=== PATIENT | female | born 1995 | race Caucasian/White ===

== ENCOUNTER → 2022-02-15 12:09 | Outpatient (CLI) | payer OTHER, SELFPAY ==
[2022-02-15 12:40] LABS: Basophils # 0.1 K/mm3 (0-0.2); Basophils % 1.9 % (0.1-2.0); Eosinophils # 0.1 K/mm3 (0.0-0.4); Eosinophils % 1.6 % (0.1-12.0); Hematocrit 43.3 % (37.0-47.0); Hemoglobin 13.9 g/dL (12.2-16.2); Lymphocytes # 1.7 K/mm3 (0.7-4.5); Lymphocytes % 30.5 % (10-50); Mean Corpuscular HGB Conc 32.1 g/dL (31.8-35.4); Mean Corpuscular Hemoglobin 29.7 pg (27.0-31.2); Mean Corpuscular Volume 92.5 fl (81-99); Mean Platelet Volume 8.4 fl (7.4-10.4); Monocytes # 0.2 K/mm3 (0.1-1.0); Monocytes % 4.5 % (1.7-9.3); Neutrophils # 3.3 K/mm3 (1.8-7.8); Neutrophils % 61.5 % (37.0-80.0); Platelet Count 224 K/mm3 (142-424); Red Blood Count 4.68 M/mm3 (4.20-5.40); Red Cell Distribution Width 13.1 % (11.5-17.5); White Blood Count 5.4 K/mm3 (4.8-10.8)
[2022-02-16 07:20] LABS: HIV Screen 4th Generation wRfx Non Reactive (Non Reactive); Hepatitis B Surface Antigen Negative (Negative); Hepatitis C Antibody >11.0 s/co ratio (0.0-0.9)
[2022-02-16 12:45] LABS: Rapid Plasma Reagin Ab Titer Non Reactive (NonRea<1:1)
[2022-02-16 15:12] LABS: HSV 2 IgG Supplemental Testing Positive (Negative)
== END ==
PROVIDERS: Visit Provider Nurse Practitioner Obstetrics & Gynecology
DX: Z34.90 Encounter for supervision of normal pregnancy, unspecified, unspecified trimester (principal)
CPT/HCPCS: 36415; 85025; 86592; 86695; 86703; 86762; 86790; 86850; 87340; 87380; G0432

== ENCOUNTER → 2022-02-22 12:57 | Outpatient (CLI) | payer OTHER, SELFPAY ==
--- NOTE | 2022-02-22 12:58 | US_ITS ---
FINAL REPORT CLINICAL HISTORY: for dates FINDINGS: Sonographic images of the pelvis were obtained. pole measures 6 mm consistent with 6 week 3 day gestation. No cardiac activity is identified. The yolk sac appears collapse. The ovaries are within normal limits. IMPRESSION: Collapsed yolk sac and absence of cardiac activity. Quantitative beta HCG and follow-up ultrasound is recommended to assess viability. Reviewed, Interpreted and Dictated by Prieto Dubon MD Transcribed by Jessy Fernandez Authenticated by Prieto Dubon MD on 02/22/2022 06:04:00 PM [facility]
[2022-02-22 15:16] LABS: HCG,Quantitative 13783 mIU/ml (0-5.42)
== END ==
PROVIDERS: Visit Provider Nurse Practitioner Obstetrics & Gynecology
DX: Z34.90 Encounter for supervision of normal pregnancy, unspecified, unspecified trimester (principal); N92.6 Irregular menstruation, unspecified
CPT/HCPCS: 36415; 76801; 84702

== ENCOUNTER → 2022-02-24 11:58 | Outpatient (CLI) | payer OTHER, SELFPAY ==
[2022-02-24 13:05] LABS: Anion Gap 12.3 mEq/L (5-15); Blood Urea Nitrogen 9 mg/dl (7-17); Calcium 9.1 mg/dl (8.4-10.2); Carbon Dioxide 26 mmol/L (22.0-30.0); Chloride 104 mmol/L (98-107); Estimated Glomerular Filt Rate 150 ml/min (>60); GFR (African American) 182 ML/MIN (>60); Glucose 97 mg/dl (74-100); Potassium 4.3 mmoL/L (3.5-5.1); Sodium 138 mmol/L (136-145)
[2022-02-24 14:46] LABS: Basophils # 0.1 K/mm3 (0-0.2); Basophils % 1.4 % (0.1-2.0); Eosinophils # 0.2 K/mm3 (0.0-0.4); Eosinophils % 2.3 % (0.1-12.0); Hematocrit 41.6 % (37.0-47.0); Hemoglobin 14.4 g/dL (12.2-16.2); Lymphocytes # 2.2 K/mm3 (0.7-4.5); Lymphocytes % 34.1 % (10-50); Mean Corpuscular HGB Conc 34.5 g/dL (31.8-35.4); Mean Corpuscular Hemoglobin 30.3 pg (27.0-31.2); Mean Corpuscular Volume 87.9 fl (81-99); Monocytes # 0.3 K/mm3 (0.1-1.0); Neutrophils # 3.7 K/mm3 (1.8-7.8); Neutrophils % 57.2 % (37.0-80.0); Platelet Count 251 K/mm3 (142-424); Red Blood Count 4.74 M/mm3 (4.20-5.40); Red Cell Distribution Width 12.9 % (11.5-17.5); White Blood Count 6.5 K/mm3 (4.8-10.8)
== END ==
PROVIDERS: Visit Provider Nurse Practitioner Obstetrics & Gynecology
DX: Z01.818 Encounter for other preprocedural examination (principal); Z11.52 Encounter for screening for COVID-19
CPT/HCPCS: 36415; 80048; 85025; C9803; U0003; U0005

== ENCOUNTER 2022-02-28 05:55 | Day surgery (SDC) | payer OTHER, SELFPAY ==
[2022-02-28] VITALS (9 sets, daily range): BP systolic 103–129; BP diastolic 55–94; PULSE 66–88; RESP 12–18; TEMP -13.5–36.5; O2SAT 95–100; BMI 32.1
--- NOTE | 2022-02-28 07:49 | HMH.OPNOTE ---
Date of procedure: 02/28/22 Pre-op Diagnosis:: Missed Post-op Diagnosis:: Missed Procedure performed:: Dilation and curettage with Musa suction Surgeon:: Yonis Mclain MD SENIOR QUALITATIVE RESEARCHER:: Other (Shavon Tipton) Anesthesia: LMA Estimated blood loss (mL): 100 Clinical Note:: She is a 26-year-old 2 para 1 who was 8 weeks gestational age. She was seen in my office and had no evidence of heart rate activity. We had done 3 separate ultrasounds and confirmed this. As result of that she was offered dilation curettage with Musa suction. Operative findings:: She had an anteverted bulky uterus. There was copious tissue within the uterine cavity. Operative note:: She was taken room where LMA anesthesia was found be adequate. She is prepped draped normal sterile fashion in the lithotomy position. Weighted speculum is placed in vagina and the antilipid the cervix was grasped with a tenaculum. I used Moss dilators to dilate the cervix to 10 mm. Then using an 10 mm curved Phelps suction curette I evacuated the uterine contents. This was followed by a gentle curettage. She tolerated procedure well and was taken to recovery room in excellent condition. All sponge, instrument and needle counts were correct. Estimated blood loss was approximately 100 cc. Condition: stable Disposition: PACU Specimens:: Retained products of conception Complications:: None
--- NOTE | 2022-02-28 07:53 | P.PN_ITS ---
[facility] Anesthesia Checklist - Patient Identification Patient Identification: Arm Band, Verbal (Name & ) - Structural Data Admitted From: Home Planned Operative Procedure/s: Hysteroscopy D&C Consent for Planned Operative Procedure(s) Verified: Yes Verified Documents: Surgical Consent - NPO Status Verified Time NPO: 00:00 - Chart Verification Results Verified: CBC - Additional verifications Anesthesia Reactions: No Hx Blood Transfusions: No Blood Transfusion Reaction: No - Airway Assessment C-Spine Mobility Assessed: Yes TMJ Mobility Assessed: Yes Dentition: Good Dentition - Neurological Assessment Level of Consciousness: Awake, Alert, Appropriate - Anesthesia Plan Anesthesia Risk discussed: Yes ASA Class: II Anesthesia Type: General [facility] History I have reviewed the patient's past medical history: Yes Medical History: Denies:: Cancer, Diabetes Mellitus Type 1, Diabetes Mellitus Type 2, Internal Pacemaker, MRSA, Seizures *Have you ever received a pneumonia vaccine?: No *Have you received a flu vaccine this season?: No Other Medical History: Denies: Blood Transfusion Reaction Anesthesia experience/problems:: none Other Surgeries: Yes: . No: Pacemaker Amputation: No Fractures: No - *Social History Last grade of school completed: 9th or 10th Smoking Status: Current every day smoker # Packs/Day (cigarettes): 1 Alcohol Intake: former Alcohol Intake Frequency:: other Substance Use Type: marijuana, other *Occupational Status:: unemployed Housing: house *Travel in the last 8 weeks: None Family Hx:: No significant family history
--- NOTE | 2022-02-28 07:55 | HMH.ANESI ---
[facility] Anesthesia Record Part I Intake, IV Amount: 500 Estimated blood loss (mL): 100 Urine output (mL): 0 Blood Pressure: 103/60 SaO2: 95 Pulse Rate: 74 Respiratory Rate: 14 Temperature: 7.7 F Patient is:: Drowsy Stable to PACU at:: 07:51
--- NOTE | 2022-02-28 08:15 | PC.NURSE ---
02/28/22@ 0812- pt complaining of itching at PIV site. PIV assessed, 5-6 hives noted around PIV site, Edouard,SPACE CONTROL SUPERVISOR aware.
--- NOTE | 2022-02-28 09:05 | SUR.PHASEII ---
At time of discharge, PIV site not as red and has not extended beyond previous assessment by Flower Sullivan RN. Pt denies pain. Pt educated to contact MD or seek medical attention for worsening symptoms. Pt and friend verbalized understanding.
[2022-03-01 07:23] VITALS: BP 118/75; PULSE 71; TEMP 36.5
--- NOTE | 2022-03-01 07:23 | P.PN_ITS ---
[facility] Anesthesia Record Part II Discharge Time: 08:21 Destination: Surgical Day Care (OP Surgery) PACU nurse assessment reviewed?: Yes Patient Condition:: Good Anesthesia Complications:: None Swallowing reflex intact?: Yes Cyanosis?: No Blood Pressure: 118/75 Pulse Rate: 71 Temperature: 97.7 F Mental Status: Alert & Oriented Pain level:: 0 Nausea and/or vomitting:: None Intake, IV Amount: 0
== END 2022-02-28 09:05 | disposition home or self-care (01) ==
LOC: OR 05:56
PROVIDERS: PCP Nurse Practitioner Obstetrics & Gynecology; Visit Provider Nurse Practitioner Obstetrics & Gynecology
PROC: (CPT 58120; principal; 2022-02-28 07:30)
DX: O02.1 Missed abortion (principal)
CPT/HCPCS: 59820; 96374; J2405

== ENCOUNTER 2022-05-19 09:58 | Emergency (ER) | payer OTHER, SELFPAY ==
--- NOTE | 2022-05-19 10:15 | PC.NURSE ---
asked pt to give a urine sample upon her arrival to the ED and she stated that she couldn't at this time. Gave her a specimen cup and instructions to give us one if she does go to the restroom.
[2022-05-19 10:18] VITALS: BP 122/83; PULSE 77; RESP 20; TEMP 36.7; O2SAT 100; BMI 34.8
--- NOTE | 2022-05-19 10:21 | PC.NURSE ---
Salazar Gordon RN sent blood to lab.
[2022-05-19 10:25] LABS: Basophils # 0.1 K/mm3 (0-0.2); Basophils % 0.6 % (0.1-2.0); Eosinophils # 0.3 K/mm3 (0.0-0.4); Eosinophils % 3.5 % (0.1-12.0); Hematocrit 43.8 % (37.0-47.0); Hemoglobin 14.9 g/dL (12.2-16.2); Lymphocytes # 3.3 K/mm3 (0.7-4.5); Mean Corpuscular HGB Conc 34.1 g/dL (31.8-35.4); Mean Corpuscular Hemoglobin 29.1 pg (27.0-31.2); Mean Corpuscular Volume 85.4 fl (81-99); Monocytes # 0.4 K/mm3 (0.1-1.0); Monocytes % 4.5 % (1.7-9.3); Neutrophils # 4.5 K/mm3 (1.8-7.8); Neutrophils % 52.4 % (37.0-80.0); Platelet Count 258 K/mm3 (142-424); Red Blood Count 5.13 M/mm3 (4.20-5.40); Red Cell Distribution Width 12.7 % (11.5-17.5); White Blood Count 8.5 K/mm3 (4.8-10.8)
--- NOTE | 2022-05-19 10:29 | HMH.EDGENADL ---
ED Disposition Clinical Impression: Lower abdominal pain Vomiting Qualifiers: Vomiting type: unspecified Nausea presence: with nausea Qualified Code(s): R11.2 - Nausea with vomiting, unspecified Disposition: Home, Self-Care Condition on Discharge: Good Instructions: DI for Acute Abdominal Pain, DI for Vomiting -- Adult Additional Instructions: Ibuprofen for pain. Zofran as needed for nausea and vomiting. Additional instructions for ABDOMINAL PAIN: See your physician as soon as possible for further evaluation. Return immediately if worsening abdominal pain, vomiting, shortness of breath, fever, vomiting of blood or abdominal distention. Prescriptions: Ibuprofen [Ibuprofen 800mg Tablet] 800 mg PO Q8HP PRN #15 tab PRN Reason: Moderate Pain Transmission Status: Pending to [facility] Ondansetron [Zofran 4mg ODT] 4 mg PO TIDP PRN #10 tab PRN Reason: Nausea And Vomiting Transmission Status: Pending to [id number] Referrals: Provider,Referral, MD [Primary Care Provider] - - Critical Care Critical Care Time: No Attestation: On 05/19/22, the high probability of a clinically significant, sudden or life threatening deterioration of the following system(s) required my full and direct attention, intervention and personal management. The time I documented below is in addition to time spent performing reported procedures but includes the following listed in this critical care notation. Medical Decision Making - Matthew Inquiry Pt receiving controlled substance: Yes Matthew was queried for this patient: Yes Risks and benefits of using a controlled substance: were discussed with pt by me Vital Signs: 05/19/22 10:18 05/19/22 10:38 05/19/22 11:30 Temperature 98.0 F Temperature Source Oral Pulse Rate 76 70 Pulse Rate [Right Radial] 77 Respiratory Rate 20 18 16 Blood Pressure 132/81 146/91 H Blood Pressure [Right Arm] 122/83 Blood Pressure Mean 92 109 Blood Pressure Mean [Right Arm] 96 Blood Pressure Source [Right Arm] Automatic Cuff Blood Pressure Position [Right Arm] Sitting 02 Sat by Pulse Oximetry 100 99 100 Oxygen Delivery Method Room Air 05/19/22 12:00 Temperature Temperature Source Pulse Rate 66 Pulse Rate [Right Radial] Respiratory Rate Blood Pressure 141/79 H Blood Pressure [Right Arm] Blood Pressure Mean Blood Pressure Mean [Right Arm] Blood Pressure Source [Right Arm] Blood Pressure Position [Right Arm] 02 Sat by Pulse Oximetry 98 Oxygen Delivery Method - Lab Data Lab Results 05/19/22 10:20: WBC 8.5, RBC 5.13, Hgb 14.9, Hct 43.8, MCV 85.4, MCH 29.1, MCHC 34.1, RDW 12.7, Plt Count 258, MPV 8.0, Neut % (Auto) 52.4, Lymph % (Auto) 39.0, Harrison % (Auto) 4.5, Eos % (Auto) 3.5, Baso % (Auto) 0.6, Neut # (Auto) 4.5, Lymph # (Auto) 3.3, Harrison # (Auto) 0.4, Eos # (Auto) 0.3, Baso # (Auto) 0.1 05/19/22 10:20: Sodium 138, Potassium 3.8, Chloride 106, Carbon Dioxide 26, Anion Gap 9.8, BUN 18 H, Creatinine 0.50 L, Estimated Creat Clear 305 H, Estimated GFR 149, Est GFR ( Amer) 180, Glucose 134 H, Calcium 9.4, Total Bilirubin 0.5, AST 39 H, ALT 26, Alkaline Phosphatase 67, Total Protein 7.2, Albumin 4.3, Globulin 2.9, Albumin/Globulin Ratio 1.5, Amylase 42, Lipase < 10 L 05/19/22 10:20: Serum HCG, Qual Negative 05/19/22 11:13: Urine Color Yellow, Urine Appearance Sl cloudy, Urine pH 7.0, Ur Specific [place] 1.025, Urine Protein 1+, Urine Glucose (UA) Negative, Urine Ketones Trace, Urine Blood Negative, Urine Nitrate Negative, Urine Bilirubin Negative, Urine Urobilinogen 0.2, Ur Leukocyte Esterase Negative, Urine RBC Occasional, Urine WBC Occasional, Ur Squamous Epith Cells Occasional, Urine Bacteria Trace, Urine Mucus 1+ Result diagrams: 05/19/22 10:20 05/19/22 10:20 Orders (Tests/Meds): ED MEDICATIONS Discontinued Medications Generic Name Dose Route Start Last Admin Trade Name Freq PRN Reason Stop Dose Admin Iopamidol 75 ml 07
[2022-05-19 10:35] LABS: Chloride 106 mmol/L (98-107); Potassium 3.8 mmoL/L (3.5-5.1); Sodium 138 mmol/L (136-145)
--- NOTE | 2022-05-19 10:36 | PC.NURSE ---
Rounded on patient; asked patient if she needed anything she said another blanket would be nice. Got patient a blanket and she had asked about medicine said she was in some pain. After leaving the room and turning off the lights at patient's request I informed Andrea KAYE about the patient wanting medicine. Call light within reach will continue to monitor.
--- NOTE | 2022-05-19 10:36 | PC.NURSE ---
Pt advises that she is still unable to provide a urine sample at this time. C/O pain and requesting meds. Will ask MD once he returns from another pt's room.
[2022-05-19 10:37] LABS: Alanine Aminotransferase 26 U/L (12-78); Amylase 42 U/L (30-110); Aspartate Amino Transferase 39 U/L (14-36); Blood Urea Nitrogen 18 mg/dl (7-17); Creatinine Clearance Estimated 305 mL/min (50-200); Estimated Glomerular Filt Rate 149 ml/min (>60); GFR (African American) 180 ML/MIN (>60)
[2022-05-19 10:38] VITALS: BP 132/81; PULSE 76; RESP 18; O2SAT 99
[2022-05-19 10:38] LABS: Albumin Level 4.3 g/dl (3.5-5.0); Albumin/Globulin Ratio 1.5 (1.1-1.8); Alkaline Phosphatase 67 U/L (38-126); Anion Gap 9.8 mEq/L (5-15); Bilirubin,Total 0.5 mg/dl (0.2-1.3); Calcium 9.4 mg/dl (8.4-10.2); Carbon Dioxide 26 mmol/L (22.0-30.0); Globulin 2.9 g/dL (1.3-3.2); Glucose 134 mg/dl (74-100); Total Protein,Serum 7.2 g/dl (6.3-8.2)
[2022-05-19 10:39] LABS: Lipase < 10 U/L (23-300)
--- NOTE | 2022-05-19 10:40 | CT_ITS ---
FINAL REPORT TECHNIQUE: After the administration of intravenous contrast, axial images were obtained through the abdomen and pelvis by computed tomography. The study was performed with techniques to keep radiation dose as low as reasonably achievable, (ALARA). Individual dose reduction techniques using automated exposure control or adjustment of mA and/or kV according to the patient's size were employed. CLINICAL HISTORY: abd pain, d & c 2 months ago. hasnt been to followup appt. FINDINGS: Abdomen: There is a calcified granuloma in the left lung base. The liver is normal in size and attenuation. The gallbladder is present. The spleen is unremarkable. The adrenals are normal. The pancreas is unremarkable. The kidneys enhance appropriately. The aorta is normal in caliber. There is no free fluid or adenopathy. Pelvis: The appendix is unremarkable. The urinary bladder is unremarkable. There is a small amount of pelvic free fluid, may be physiologic or reactive. There is no evidence of adenopathy. IMPRESSION: No acute intra-abdominal process. Reviewed, Interpreted and Dictated by Nino Monteiro III, MD Transcribed by Jessy Fernandez Authenticated and [facility]
--- NOTE | 2022-05-19 10:40 | PC.NURSE ---
states that he is waiting for results of test before prescribing meds for pain.
[2022-05-19 10:45] LABS: HCG Qualitative, Serum Negative (Negative)
--- NOTE | 2022-05-19 10:52 | PC.NURSE ---
Salazar Gordon RN at bedside medicating pt.
--- NOTE | 2022-05-19 11:00 | PC.NURSE ---
risk tech taking patient to CT by wheelchair.
--- NOTE | 2022-05-19 11:00 | PC.NURSE ---
Pt to rad at this time.
--- NOTE | 2022-05-19 11:10 | PC.NURSE ---
dietetic technician assisted patient to the bathroom
--- NOTE | 2022-05-19 11:16 | PC.NURSE ---
Went in to collect patient urine. Patient stated, It doesn't hurt when i pee but it feeling like something is trying to come out When told to further elaborate on what she meant by that she stated like a kidney stone or something . Patient also stated The morphine is helping now but it will not take away the pain forever it will come back I told her I would let her nurse know. Mendoza notified.
[2022-05-19 11:23] LABS: Microscopic, Urine URINE MICROSCOPIC (MICROSCOPIC)
[2022-05-19 11:25] LABS: Appearance,Urine SL CLOUDY (Clear); Bilirubin,Urine Negative (Negative); Blood, Urine Negative (Negative); Color,Urine YELLOW (Yellow); Glucose,Urine (UA) Negative (Negative); Ketones,Urine TRACE (Negative); Leukocyte Esterase,Urine Negative (Negative); Nitrate,Urine Negative (Negative); Protein,Urine 1+ (Negative); Specific Gravity, Urine 1.025 (1.005-1.030); Urobilinogen,Urine 0.2 EU/dl (0.2)
[2022-05-19 11:30] VITALS: BP 146/91; PULSE 70; RESP 16; O2SAT 100
--- NOTE | 2022-05-19 11:33 | PC.NURSE ---
Pt states that the pain medication has helped ease her pain at this time. Resting comfortable on stretcher with IV fluids running.
[2022-05-19 11:36] LABS: Bacteria,Urine Trace /lpf; Mucus,Urine 1+ /lpf; RBC,Urine Occasional #/hpf (0-3); Squamous Epithelial Cell,Urine Occasional #/hpf (0-5); WBC,Urine Occasional #/hpf (0-3)
[2022-05-19 12:00] VITALS: BP 141/79; PULSE 66; O2SAT 98
--- NOTE | 2022-05-19 12:17 | PC.NURSE ---
MD at bedside updating pt on test results and POC.
--- NOTE | 2022-05-19 12:28 | PC.NURSE ---
Pt is attempting to call ride at this time.
[2022-05-19 12:39] VITALS: BP 129/76; PULSE 74; RESP 16; TEMP 36.7; O2SAT 98
== END 2022-05-19 12:39 | disposition home or self-care (01) ==
PROVIDERS: Emergency Provider Emergency Medicine
DX: R11.2 Nausea with vomiting, unspecified (principal); R10.31 Right lower quadrant pain; R10.32 Left lower quadrant pain; R10.13 Epigastric pain; M54.9 Dorsalgia, unspecified; J84.10 Pulmonary fibrosis, unspecified; F17.210 Nicotine dependence, cigarettes, uncomplicated; Z79.899 Other long term (current) drug therapy
CPT/HCPCS: 74177; 80053; 81001; 82150; 83690; 84703; 85025; 96374; 96375; 99285; J2405; Q9967

== ENCOUNTER → 2022-08-10 17:57 | Outpatient (CLI) | payer OTHER, SELFPAY | PROVIDERS: Visit Provider Nurse Practitioner Obstetrics & Gynecology | DX: Z34.90 Encounter for supervision of normal pregnancy, unspecified, unspecified trimester (principal); Z3A.01 Less than 8 weeks gestation of pregnancy | CPT/HCPCS: 84702 ==

== ENCOUNTER → 2022-08-18 09:48 | Outpatient (CLI) | payer OTHER, SELFPAY ==
[2022-08-18 11:32] LABS: Basophils % 0.7 % (0.1-2.0); Eosinophils # 0.1 K/mm3 (0.0-0.4); Eosinophils % 1.7 % (0.1-12.0); Hematocrit 39.2 % (37.0-47.0); Hemoglobin 13.1 g/dL (12.2-16.2); Lymphocytes # 1.6 K/mm3 (0.7-4.5); Lymphocytes % 26.4 % (10-50); Mean Corpuscular HGB Conc 33.5 g/dL (31.8-35.4); Mean Corpuscular Hemoglobin 29.3 pg (27.0-31.2); Mean Corpuscular Volume 87.6 fl (81-99); Mean Platelet Volume 8.7 fl (7.4-10.4); Monocytes # 0.3 K/mm3 (0.1-1.0); Monocytes % 4.4 % (1.7-9.3); Neutrophils % 66.9 % (37.0-80.0); Platelet Count 217 K/mm3 (142-424); Red Blood Count 4.48 M/mm3 (4.20-5.40); White Blood Count 5.9 K/mm3 (4.8-10.8)
[2022-08-19 08:18] LABS: HIV Screen 4th Generation wRfx Non Reactive (Non Reactive); Hepatitis B Surface Antigen Negative (Negative); Hepatitis C Antibody >11.0 s/co ratio (0.0-0.9); Rubella Antibodies, IgG 6.45 index (Immune >0.99)
[2022-08-19 10:10] LABS: Rapid Plasma Reagin Ab Titer Non Reactive (NonRea<1:1)
== END ==
PROVIDERS: PCP Nurse Practitioner Obstetrics & Gynecology; Visit Provider Nurse Practitioner Obstetrics & Gynecology
DX: Z34.90 Encounter for supervision of normal pregnancy, unspecified, unspecified trimester (principal)
CPT/HCPCS: 36415; 85025; 86592; 86703; 86762; 86850; 87340; 87380; G0432

== ENCOUNTER → 2022-11-08 13:28 | Outpatient (CLI) | payer OTHER, SELFPAY ==
--- NOTE | 2022-11-08 13:30 | US_ITS ---
FINAL REPORT CLINICAL HISTORY: 20 week anatomty scan FINDINGS: There is a single live intrauterine gestation. Presentation is breech. The cervix is closed and measures 4.0 cm. Placenta is anterior, grade 1. movement is noted. Three-vessel cord with satisfactory umbilical cord insertion. Four-chamber heart is noted. brain and ventricles are unremarkable. Chest and diaphragm are unremarkable. ABDOMEN: Both kidneys are unremarkable. Stomach is unremarkable. SPINE: No anomalies identified. Both arms and legs noted. AMNIOTIC FLUID: Appropriate amount. HC/AC: 1.05 CI: 75% FL/BPD: 77% FL/AC: 22% MEASUREMENTS: ULTRASOUND AGE: 24 weeks 0 days. GESTATION AGE: 24 weeks 2 days. ESTIMATED WEIGHT: 685 g GROWTH PERCENTILE: 43% LMP percentile BPD: 5.7 cm corresponding with 23 weeks 3 days. OFD: 7.6 cm corresponding with 24 weeks 0 days. HC: 21.0 cm corresponding with 23 weeks 1 days. AC: 19.9 cm corresponding with 24 weeks 5 days. FL: 4.4 cm corresponding with 24 weeks 4 days. CEREBELLUM: 2.5 cm corresponding with 24 weeks 2 days. HUMERUS: 4.0 cm corresponding with 24 weeks 4 days. IMPRESSION: Single living IUP with an ultrasound age of 24 weeks 0 days. No gross anomalies noted. Reviewed, Interpreted and Dictated by Nino Monteiro III, MD Transcribed by Maricruz Loredo Authenticated and [facility]
== END ==
PROVIDERS: PCP Nurse Practitioner Obstetrics & Gynecology; Visit Provider Nurse Practitioner Obstetrics & Gynecology
DX: Z34.90 Encounter for supervision of normal pregnancy, unspecified, unspecified trimester (principal); Z3A.20 20 weeks gestation of pregnancy
CPT/HCPCS: 76811

== ENCOUNTER → 2023-02-15 23:27 | Outpatient (CLI) | payer OTHER, SELFPAY | PROVIDERS: Visit Provider Nurse Practitioner Obstetrics & Gynecology | DX: Z34.90 Encounter for supervision of normal pregnancy, unspecified, unspecified trimester (principal) | CPT/HCPCS: 86403 ==

== ENCOUNTER 2023-02-26 05:15 | Inpatient (IN) | payer OTHER, SELFPAY ==
[2023-02-26 05:24] VITALS: BP 128/87; PULSE 89; RESP 18; TEMP 37; O2SAT 98; BMI 37.7; BMI 37.8
[2023-02-26 05:58] LABS: Coronavirus 19, PCR Not Detected (NotDetected); Influenza A, PCR Not Detected (NotDetected); Influenza B, PCR Not Detected (NotDetected); Microscopic, Urine URINE MICROSCOPIC (MICROSCOPIC)
[2023-02-26 06:17] LABS: Basophils % 0.5 % (0.1-2.0); Eosinophils # 0.2 K/mm3 (0.0-0.4); Eosinophils % 1.6 % (0.1-12.0); Hematocrit 35.8 % (37.0-47.0); Hemoglobin 12.3 g/dL (12.2-16.2); Lymphocytes # 2.4 K/mm3 (0.7-4.5); Mean Corpuscular HGB Conc 34.2 g/dL (31.8-35.4); Mean Corpuscular Hemoglobin 30.2 pg (27.0-31.2); Mean Corpuscular Volume 88.2 fl (81-99); Mean Platelet Volume 9.1 fl (7.4-10.4); Monocytes # 0.5 K/mm3 (0.1-1.0); Monocytes % 5.3 % (1.7-9.3); Neutrophils # 6.1 K/mm3 (1.8-7.8); Neutrophils % 66.5 % (37.0-80.0); Platelet Count 226 K/mm3 (142-424); Red Blood Count 4.06 M/mm3 (4.20-5.40); Red Cell Distribution Width 13.2 % (11.5-17.5); White Blood Count 9.2 K/mm3 (4.8-10.8)
[2023-02-26 06:31] LABS: Appearance,Urine SL CLOUDY (Clear); Bilirubin,Urine Negative (Negative); Blood, Urine Negative (Negative); Color,Urine YELLOW (Yellow); Glucose,Urine (UA) Negative (Negative); Ketones,Urine Negative (Negative); Leukocyte Esterase,Urine Negative (Negative); Nitrate,Urine Negative (Negative); PH,Urine 6.5 (5.0-8.5); Protein,Urine Negative (Negative); Specific Gravity, Urine 1.025 (1.005-1.030)
[2023-02-26 06:59] LABS: Bacteria,Urine Trace /lpf; Hyaline Casts,Urine Occasional #/lpf (0); WBC,Urine Occasional #/hpf (0-3)
--- NOTE | 2023-02-26 07:00 | EXP.ANES.CKL ---
[facility] Disclaimer: The information contained in this section may have been updated after the patient was seen, as this information can be updated by other users. Medical History Hepatitis C antibody positive in blood Suboxone maintenance treatment complicating , antepartum Surgical History History of section History of dilation and curettage Social History Smoking Status: Current every day smoker alcohol intake: former substance use type: marijuana and other current occupational status: employed Travel in the last 8 weeks: None housing: house caffeine: Yes [facility] Anesthesia Checklist Patient Identification Patient Identification: Arm Band and Verbal (Name & ) Structural Data Admitted From: Home Planned Operative Procedure/s: C section Consent for Planned Operative Procedure(s) Verified: Yes NPO Status Verified Time NPO: 00:00 Chart Verification Results Verified: CBC and BMP Additional verifications Patient : Yes Anesthesia Reactions: No Hx Blood Transfusions: No Blood Transfusion Reaction: No Airway Assessment C-Spine Mobility Assessed: Yes TMJ Mobility Assessed: Yes Dentition: Good Dentition Neurological Assessment Level of Consciousness: Awake Hx Seizures: No Numbness or tingling in extremities: No Anesthesia Plan Anesthesia Risk discussed: Yes Anesthesia Plan: Verified ASA Class: II Anesthesia Type: Spinal
[2023-02-26 07:02] LABS: Alanine Aminotransferase 29 U/L (12-78); Albumin Level 2.9 g/dl (3.5-5.0); Albumin/Globulin Ratio 1.1 (1.1-1.8); Alkaline Phosphatase 131 U/L (38-126); Anion Gap 13.7 mEq/L (5-15); Aspartate Amino Transferase 30 U/L (14-36); Bilirubin,Total 0.3 mg/dl (0.2-1.3); Blood Urea Nitrogen 10 mg/dl (7-17); Calcium 8.1 mg/dl (8.4-10.2); Carbon Dioxide 22 mmol/L (22.0-30.0); Chloride 103 mmol/L (98-107); Creatinine Clearance Estimated 304 mL/min (50-200); Estimated Glomerular Filt Rate 149 ml/min (>60); GFR (African American) 180 ML/MIN (>60); Globulin 2.7 g/dL (1.3-3.2); Glucose 82 mg/dl (74-100); Potassium 3.7 mmoL/L (3.5-5.1); Sodium 135 mmol/L (136-145); Total Protein,Serum 5.6 g/dl (6.3-8.2)
[2023-02-26 07:57] LABS: Amphetamine/Metha Screen,Urine Negative ng/ml (<1000); Benzodiazepines Screen,Urine Negative ng/ml (<200)
[2023-02-26 07:58] LABS: Barbiturates Screen,Urine Negative ng/ml (<200)
[2023-02-26 07:59] LABS: Cannabinoid Screen,Urine Negative ng/ml (<50); Cocaine Screen,Urine Negative ng/ml (<300)
--- NOTE | 2023-02-26 08:13 | HMH.PHAINT1 ---
Pharmacy Intervention Comments: MEDICATION RECONCILIATION COMPLETED ON PATIENT USING EXTERNAL FILL HISTORY FROM PHARMACY AND [facility] REPORT. -MELISSA RUSH, MARITAD
[2023-02-26 08:27] LABS: Cord Blood PH 7.33 (7.35-7.45)
[2023-02-26 08:43] LABS: Opiate Screen,Urine Negative ng/ml (<300)
[2023-02-26 08:44] LABS: Phencyclidine Screen,Urine Negative ng/ml (<25)
[2023-02-26 08:45] LABS: Methadone Screen,Urine Negative ng/ml (<300)
--- NOTE | 2023-02-26 08:55 | EXP.OP.NOTE ---
Date of procedure: 02/26/23 Pre-op Diagnosis:: Term , previous section, desire for sterilization, Suboxone maintenance in , hepatitis C positive Post-op Diagnosis:: Term , previous section, desire for sterilization, Suboxone maintenance in , hepatitis C positive Procedure performed:: Repeat lower segment transverse section and bilateral salpingectomy Surgeon:: Yonis Mclain MD Assistant Manager Trainee(s):: Dr. Tavera CLUBHOUSE MANAGER:: Shelli Layne Anesthesia: spinal Estimated blood loss (mL): 600 Clinical Note:: She is a 27-year-old lady who has had previous sections. She was offered repeat lower segment transverse section at term. She also expressed desire for sterilization. The risks and benefits of surgery as well as the irreversibility of bilateral salpingectomy were discussed with the patient prior to surgery. She is also on Suboxone and has hepatitis C. Operative findings:: She delivered a liveborn male child at 8:01 AM on the morning of February 26, 2023. The baby had Apgars of 8 at 1 minute and 9 at 5 minutes. pH was 7.33. Baby weighed 7 pounds 11 ounces. Ovaries and tubes appeared normal. Operative note:: She was taken to the operating room where spinal anesthesia was found be adequate. She was prepped and draped in normal sterile fashion in the supine position with a leftward tilt. A Owen catheter was in the bladder. A Pfannenstiel skin incision was made with knife then carried through to the underlying layer of fascia with cautery. The fascia was opened in the midline with cautery and extended laterally using Saunders scissors. Moraima clamps were applied to the superior aspect of the fascial incision which was tented up and the underlying rectus muscles dissected off using cautery. The Carlton clamps were then applied to the inferior aspect of the fascial incision which in a similar fashion was tented up and the underlying rectus muscles dissected off using cautery. The rectus muscles were then in the midline, the peritoneum identified, and entered sharply with Metzenbaum scissors. This incision was then extended superiorly and inferiorly with cautery. We had good visualization of the bladder inferiorly. The bladder peritoneum was then opened in the midline and extended laterally using Metzenbaum scissors. A bladder flap was created digitally. An Shar retractor was then placed within the abdominal cavity. Transverse incision was made through the uterine muscle to the amnion. This incision was then extended laterally using fingers traction. The amnion was entered sharply with knife. There was clear amniotic fluid. The 's head was then delivered atraumatically. There was a loose nuchal cord which was easily reduced. This was followed by the anterior shoulder and the rest of the infant's body atraumatically. The oropharynx and nasopharynx were bulb suctioned. We allowed the cord to continue to pulsate for approximately 1 minute since the baby was vigorous. The cord was then doubly clamped and cut. The infant was then handed off to Dr. Alfaro who assigned Apgars of 8 at 1 minute and 9 at 5 minutes. We then obtained cord blood as well as cord pH. The pH was 7.33. Using gentle traction on the cord and countertraction on the fundus I was able to easily deliver the placenta intact. It had a normal three-vessel cord. The uterus was then cleared of clots and debris . The uterine incision was then closed using running 0 Vicryl suture in a locked fashion. A second layer of the same suture was used to imbricate the first layer. The bladder peritoneum was then closed using running 2-0 Vicryl suture in a locked fashion. The gutters and cul-de-sac were then cleared of clots and debris . Once again hemostasis was assured. We then performed a bilateral salpingectomy. The distal end of the tube was grasped with my fingers and using the endoseal I cut through the mesosalpinx. I then cut across
[2023-02-26 08:56] VITALS: BP 110/72; PULSE 59; RESP 16; TEMP 36.1; O2SAT 100
--- NOTE | 2023-02-26 08:56 | EXP.ANES.I ---
[facility] Anesthesia Record Part I Anesthesia Record I Intake, IV Amount: 1,200 Estimated blood loss (mL): 600 Urine output (mL): 80 Blood Pressure: 114/71 SaO2: 100 Pulse Rate: 65 Respiratory Rate: 13 Temperature: 97 F Patient is:: Awake Stable to PACU at:: 08:56
[2023-02-26 08:58] VITALS: BP 114/71; PULSE 65; RESP 13; TEMP 36.1; O2SAT 100
[2023-02-26 09:06] VITALS: BP 112/75; PULSE 62; RESP 17; O2SAT 100
[2023-02-26 09:16] VITALS: BP 115/68; PULSE 64; RESP 18; O2SAT 100
[2023-02-26 09:26] VITALS: BP 105/57; PULSE 65; RESP 18; O2SAT 100
--- NOTE | 2023-02-26 11:17 | SUR.OPER ---
0801- Time of of viable infant. Cord blood pH 7.33
--- NOTE | 2023-02-26 14:19 | SW/DCPLANNER ---
Addendum entered by Gala Sam 03/02/23 08:18: Infant cord screen is positive for Suboxone: no further action at this time. Addendum entered by Gala Sam 02/27/23 09:30: urine drug screen is negative. Original Note: I received a consult on this patient regarding: suboxone and THC use during . Patient tested positive for THC and Suboxone on 08/11/22 and Suboxone on 02/16/23. OB staff has tested patient and infant: currently awaiting results. Pharmacy has verified Suboxone Clinic: [facility]. Infant male (Jose Schulz) was born today 02/26/23. Infant's father (Hi Schulz 12/09/82) was not present at time of my visit but patient stated that he will be involved with . Patient, Hi, infant and father's other child (Patrick Schulz) will reside at [address] [place] [address]. Patient's contact number is [phone]. Patient is established with [facility] and is interested in HANDS and I will ask this program to reach out to patient. Patient stated that she has the following items at home: crib, carseat, clothing, diapers, bottle/breast feeding. Patient does not admit to using THC during beginning of . I am currently waiting for patient's urine drug screen to result and for infant's to be collected then will follow up. Pending no setbacks patient/infant will discharge 02/28/23.
[2023-02-26 17:34] LABS: Microscopic,Cath URINE MICROSCOPIC (MICROSCOPIC)
[2023-02-26 17:48] LABS: Appearance,Urine/Cath CLEAR (Clear); Blood, Urine/Cath Negative (Negative); Color,Urine/Cath YELLOW (Yellow); Glucose,Urine/Cath (UA) Negative (Negative); Ketones,Urine/Cath Negative (Negative); Leukocyte Esterase,Cath Negative (Negative); Nitrate,Cath Negative (Negative); PH,Urine/Cath 6.5 (5.0-8.5); Protein,Urine/Cath Negative (Negative); Specific Gravity, Urine/Cath >= 1.030 (1.005-1.030)
[2023-02-26 17:55] LABS: Bilirubin,Cath 1+ (Negative)
[2023-02-26 18:48] LABS: Bacteria,Urine/Cath TRACE /lpf; RBC,Urine/Cath Occasional # /hpf (0-3)
[2023-02-26 18:49] LABS: CA Oxalate Crystals,Ur/Cath Trace /lpf; Mucus,Urine/Cath 3+ /lpf
[2023-02-27 07:56] VITALS: RESP 17
[2023-02-27 08:11] LABS: Hematocrit 32.6 % (37.0-47.0)
--- NOTE | 2023-02-27 08:36 | EXP.ACUTE.PN ---
Subjective *Date: 02/27/23 *Time: 08:36 Interval history: She is doing well this morning. She is eating and drinking and ambulating. She is bottlefeeding. Her lochia is normal. Her pain is improved. She has some cramps but they are improving. Her hemoglobin is 11.0. Medical Exam Vital signs and Labs for Last 24 Hours: Vital Signs Temp Pulse Pulse Resp BP BP Pulse Ox 02/27/23 07:56 17 02/26/23 09:26 65 18 105/57 L 100 02/26/23 09:16 64 18 115/68 100 02/26/23 09:06 62 17 112/75 100 02/26/23 08:56 97.0 F L 59 L 16 110/72 100 02/26/23 08:58 97 F L 65 13 114/71 Intake and Output 02/26/23 02/27/23 02/27/23 19:59 03:59 11:59 Output Total 900 / 900 Balance -900 / -900 Output: Output, Urine Amount (Catheter) 900 / 900 Owen 900 / 900 Laboratory Results - last 24 hr 02/26/23 05:50: Urine Opiates Screen Negative, Urine Methadone Screen Negative, Ur Barbituates Screen Negative, Ur Phencyclidine Scrn Negative, Ur Amphetamines Screen Negative, U Benzodiazepines Scrn Negative, Urine Cocaine Screen Negative, U Marijuana (THC) Screen Negative 02/26/23 07:46: Urine Color Yellow, Urine Appearance Clear, Urine pH 6.5, Ur Specific [place] >= 1.030, Urine Protein Negative, Urine Glucose (UA) Negative, Urine Ketones Negative, Urine Blood Negative, Urine Nitrate Negative, Urine Bilirubin 1+ A, Urine Urobilinogen 1.0, Ur Leukocyte Esterase Negative, Urine RBC Occasional, Urine WBC None, Ur Squamous Epith Cells 3-5, Calcium Oxalate Crystal Trace, Urine Bacteria Trace 02/27/23 07:52: Hgb 11.0 L, Hct 32.6 L I & O for Labs for Last 24 Hours: Intake & Output 02/24/23 02/25/23 02/26/23 02/27/23 11:59 11:59 11:59 11:59 Intake Total 1200 / 1200 Output Total 125 / 125 900 / 900 Balance 1075 / 1075 -900 / -900 Weight 249 lb 0.017 oz Head: Present atraumatic Neck: Present normal inspection Respiratory: Present normal respiratory effort; Absent accessory muscle use Assessment and Plan *Assessment and plan (1) Suboxone maintenance treatment complicating , antepartum: Status: Acute Category: Medical Code(s): O99.320 - Drug use complicating , unspecified trimester; F11.20 - Opioid dependence, uncomplicated (2) Hepatitis C antibody positive in blood: Status: Acute Category: Medical Code(s): R76.8 - Other specified abnormal immunological findings in serum (3) History of section: Status: Acute Category: Surgical Code(s): Z98.891 - History of uterine scar from previous surgery (4) delivery delivered: Status: Acute Category: Medical Code(s): O82 - Encounter for delivery without indication (5) Sterilization: Status: Acute Category: Medical Code(s): Z30.2 - Encounter for sterilization Plan She is doing very well 1 day postoperative from a and bilateral salpingectomy. Her lochia is normal. Her hemoglobin is stable. Her vitals are stable. Her pain is improving. We will plan to restart her Subutex today. We will plan to send her home in 48 hours. We will continue close observation of her baby for withdrawal symptoms. He seems to be doing well this morning.
[2023-02-27 10:05] VITALS: RESP 16
[2023-02-27 12:29] VITALS: RESP 17
--- NOTE | 2023-02-27 15:40 | EXP.HP ---
History of Present Illness *Admission Date: 02/26/23 *Reason for visit:: Term , previous section, desire for sterilization, *History of present illness: She is a 27-year-old 4 para 2 aborta 1 who is 39 weeks gestational age. She has had 2 previous sections and as result of that was offered repeat lower segment transverse section at term. She also expressed desire for sterilization. She is known to be hepatitis C positive and she takes Suboxone [address] [facility] Disclaimer: The information contained in this section may have been updated after the patient was seen, as this information can be updated by other users. Medical History Hepatitis C antibody positive in blood Suboxone maintenance treatment complicating , antepartum Surgical History History of section History of dilation and curettage Family History No significant family history Social History Smoking Status: Current every day smoker tobacco type: cigarettes packs per day: 1 alcohol intake: former substance use type: marijuana and other current occupational status: employed Travel in the last 8 weeks: None housing: house caffeine: Yes do you feel safe at home: Yes victim of physical abuse: No victim of emotional abuse: No victim of sexual abuse: No Review of Systems Review of Systems Review of systems:: pertinent systems reviewed and negative unless documented below Meds Home Medications and Allergies Home Medications Medication Instructions Recorded Confirmed Type ondansetron 4 mg disintegrating 4 mg PO Q6H PRN nausea and 11/02/22 02/26/23 Rx tablet vomiting #30 tabs prenat.vits,jaya,rfz-dkui-gacpo 1 tab PO DAILY Supplement #30 tabs 01/29/23 02/26/23 Rx buprenorphine 8 mg-naloxone 2 mg 2 film sublingual DAILY WITHDRAWAL 02/15/23 02/26/23 History sublingual film bupropion HCl 150 mg 24 hr tablet, 150 mg PO DAILY Depression 02/26/23 02/26/23 History extended release (Wellbutrin XL) ferrous sulfate 325 mg (65 mg 325 mg PO DAILY Supplement 02/26/23 02/26/23 History iron) tablet,delayed release labetalol 100 mg tablet 50 mg PO BID High blood pressure 02/26/23 02/26/23 History polyethylene glycol 3350 17 17 g PO DAILY constipation 02/26/23 02/26/23 History gram/dose oral powder (Miralax) New Prescriptions to Start Prescriptions: Allergies Allergy/AdvReac Type Severity Reaction Status Date / Time No Known Allergies Allergy Verified 02/22/23 14:30 Exam Data for Last 24 hours Vital signs and Labs for Last 24 Hours: Temp Pulse Resp BP Pulse Ox 97 F L 65 17 105/57 L 100 02/26/23 08:58 02/26/23 09:26 02/27/23 12:29 02/26/23 09:26 02/26/23 09:26 Laboratory Results - last 24 hr 02/26/23 07:46: Urine Color Yellow, Urine Appearance Clear, Urine pH 6.5, Ur Specific [place] >= 1.030, Urine Protein Negative, Urine Glucose (UA) Negative, Urine Ketones Negative, Urine Blood Negative, Urine Nitrate Negative, Urine Bilirubin 1+ A, Urine Urobilinogen 1.0, Ur Leukocyte Esterase Negative, Urine RBC Occasional, Urine WBC None, Ur Squamous Epith Cells 3-5, Calcium Oxalate Crystal Trace, Urine Bacteria Trace 02/27/23 07:52: Hgb 11.0 L, Hct 32.6 L I & O for Last 24 hours: Intake & Output 02/25/23 02/26/23 02/27/23 02/28/23 11:59 11:59 11:59 11:59 Intake Total 1200 / 1200 Output Total 125 / 125 900 / 900 Balance 1075 / 1075 -900 / -900 Weight 249 lb 0.017 oz Constitutional Constitutional: no acute distress *Routine HEENT Exam Head: Present normocephalic Eye: Present EOMI and PERRL ENT: Present mucous membranes moist *Routine Neck Exam Neck: Present supple; Absent lymphadenopathy *Routine Respiratory Exam Respiratory: Pre
[2023-02-27 16:31] VITALS: RESP 18
[2023-02-27 20:00] VITALS: BP 127/69; PULSE 73; RESP 18; TEMP 36.9; O2SAT 98
[2023-02-28 04:15] VITALS: BP 115/81; PULSE 82; RESP 18; TEMP 36.7; O2SAT 99
[2023-02-28 07:53] VITALS: BP 135/88; PULSE 76; RESP 18; TEMP 36.7; O2SAT 99
[2023-02-28 09:21] VITALS: BP 105/57; PULSE 65; TEMP 36.1
--- NOTE | 2023-02-28 09:21 | EXP.ANES.II ---
[facility] Anesthesia Record Part II Anesthesia Record Part II Discharge Time: 09:26 Destination: Obstetric PACU nurse assessment reviewed?: Yes Patient Condition:: Good Anesthesia Complications:: None Swallowing reflex intact?: Yes Cyanosis?: No Blood Pressure: 105/57 Pulse Rate: 65 Temperature: 97 F Mental Status: Alert & Oriented Pain level:: 0 Nausea and/or vomitting:: None Intake, IV Amount: 0
--- NOTE | 2023-02-28 10:17 | EXP.ACUTE.PN ---
Subjective *Date: 02/28/23 *Time: 10:17 Interval history: She is doing very well this morning. She is eating and drinking and ambulating. She is pumping her breast. She feels well. Her pain is improved. Medical Exam Vital signs and Labs for Last 24 Hours: Vital Signs Temp Pulse Pulse Resp BP BP Pulse Ox 02/28/23 07:53 98.0 F 76 18 135/88 99 02/28/23 04:15 98.1 F 82 18 115/81 99 02/27/23 20:00 98.4 F 73 18 127/69 98 02/27/23 16:31 18 02/27/23 12:29 17 02/28/23 09:21 97 F L 65 105/57 L Intake and Output 02/27/23 02/28/23 02/28/23 19:59 03:59 11:59 Intake Total 0 / 0 Balance 0 / 0 Intake: Intake, Total IV Amount 0 / 0 I & O for Labs for Last 24 Hours: Intake & Output 02/25/23 02/26/23 02/27/23 02/28/23 11:59 11:59 11:59 11:59 Intake Total 1200 / 1200 0 / 0 Output Total 125 / 125 900 / 900 Balance 1075 / 1075 -900 / -900 0 / 0 Weight 249 lb 0.017 oz Head: Present atraumatic ENT: Present normal exam Neck: Present normal inspection Respiratory: Present normal respiratory effort; Absent accessory muscle use Assessment and Plan *Assessment and plan (1) delivery delivered: Status: Acute Category: Medical Code(s): O82 - Encounter for delivery without indication (2) Sterilization: Status: Acute Category: Medical Code(s): Z30.2 - Encounter for sterilization (3) Suboxone maintenance treatment complicating , antepartum: Status: Acute Category: Medical Code(s): O99.320 - Drug use complicating , unspecified trimester; F11.20 - Opioid dependence, uncomplicated (4) Hepatitis C antibody positive in blood: Status: Acute Category: Medical Code(s): R76.8 - Other specified abnormal immunological findings in serum (5) History of section: Status: Acute Category: Surgical Code(s): Z98.891 - History of uterine scar from previous surgery Plan She is 48 hours post . She is doing well. Her pain is reasonably well controlled. We will plan to send her home tomorrow.
[2023-02-28 15:19] VITALS: BP 128/86; PULSE 78; RESP 18; TEMP 36.8; O2SAT 98
[2023-02-28 20:24] VITALS: BP 146/86; PULSE 69; RESP 17; TEMP 36.7; O2SAT 98
[2023-02-28 22:03] VITALS: BP 125/84; PULSE 86
[2023-03-01 04:55] VITALS: BP 124/78; PULSE 68; RESP 18; TEMP 36.7; O2SAT 100
--- NOTE | 2023-03-01 08:53 | EXP.DC.SUM ---
General Admission date:: 02/26/23 Discharge date: 03/01/23 HPI HPI HPI: She is a 27-year-old 4 para 2 aborta 1 who is 39 weeks gestational age. She has had 2 previous sections and as result of that was offered repeat lower segment transverse section at term. She also expressed desire for sterilization. She is known to be hepatitis C positive and she takes Suboxone 16 mg daily. Hospital Course Hospital Course Hospital Course: On February 26, 2023 she underwent a repeat lower segment transverse section and bilateral salpingectomy. She delivered a liveborn male child at 8:01 AM. The baby weighed 7 pounds 11 ounces and had Apgars of 8 at 1 minute and 9 at 5 minutes. He was 20 inches long. She has done well post and has remained afebrile throughout her hospitalization. She is eating and drinking and ambulating. She has both pumping and giving formula. Her pain is reasonably well controlled. She has been started back on her Suboxone. She did have a T AP block that has helped as well. She has a positive blood, she is rubella immune and was group B streptococcus negative. Her wrister Dr. Alfaro. The baby is showing some signs of withdrawal and we will plan to keep the baby and discharge the mom home. She is discharged home to follow-up with me in approximately 2 weeks time. She will continue with her vitamins and iron. She was given the usual instructions with respect to limiting her activity, driving and sexual activity. She was given instructions with respect to wound care. She was given a prescription for Percocet 5/325 number 20 tablets. She was given a prescription for ibuprofen 400 mg. Her condition on discharge is stable and improved. Exam Data for Last 24 hours Vital signs and Labs for Last 24 Hours: Temp Pulse Resp BP Pulse Ox 98.0 F 68 18 124/78 100 03/01/23 04:55 03/01/23 04:55 03/01/23 04:55 03/01/23 04:55 03/01/23 04:55 I & O for Last 24 hours: Intake & Output 02/26/23 02/27/23 02/28/23 03/01/23 11:59 11:59 11:59 11:59 Intake Total 1200 / 1200 0 / 0 Output Total 125 / 125 900 / 900 Balance 1075 / 1075 -900 / -900 0 / 0 Weight 249 lb 0.017 oz Constitutional Constitutional: no acute distress *Routine HEENT Exam Head: Present normocephalic *Routine Neck Exam Neck: Present full ROM *Routine Respiratory Exam Respiratory: Present normal respiratory effort; Absent accessory muscle use DS: Diagnosis Discharge Diagnosis (1) delivery delivered: Status: Acute (2) Sterilization: Status: Acute (3) Suboxone maintenance treatment complicating , antepartum: Status: Acute (4) Hepatitis C antibody positive in blood: Status: Acute (5) History of section: Status: Acute Meds Home Medications and Allergies Home Medications Medication Instructions Recorded Confirmed Type ondansetron 4 mg disintegrating 4 mg PO Q6H PRN nausea and 11/02/22 02/26/23 Rx tablet vomiting #30 tabs prenat.vits,jaya,ntu-xajl-otnoy 1 tab PO DAILY Supplement #30 tabs 01/29/23 02/26/23 Rx buprenorphine 8 mg-naloxone 2 mg 2 film sublingual DAILY WITHDRAWAL 02/15/23 02/26/23 History sublingual film bupropion HCl 150 mg 24 hr tablet, 150 mg PO DAILY Depression 02/26/23 02/26/23 History extended release (Wellbutrin XL) ferrous sulfate 325 mg (65 mg 325 mg PO DAILY Supplement 02/26/23 02/26/23 History iron) tablet,delayed release labetalol 100 mg tablet 50 mg PO BID High blood pressure 02/26/23 02/26/23 History polyethylene glycol 3350 17 17 g PO DAILY constipation 02/26/23 02/26/23 History gram/dose oral powder (Miralax) ibuprofen 400 mg tablet 400 mg PO Q4HP PRN Moderate Pain 03/01/23 Rx #40 tabs oxycodone-acetaminophen 5 mg-325 1 tab PO Q4-6H PRN severe pain. 03/01/23 Rx mg tablet (Percocet) #20 tabs New Prescriptions to Start Prescriptions: ibuprofen
[2023-03-05 15:10] LABS: Buprenorphine, Urine Positive (Cutoff=10)
== END 2023-03-01 13:30 | disposition home or self-care (01) | DRG 785 ==
PROVIDERS: Admitting Provider Nurse Practitioner Obstetrics & Gynecology; Visit Provider Nurse Practitioner Obstetrics & Gynecology
PROC: 10D00Z1 Extraction of Products of Conception, Low, Open Approach (ICD-10-PCS; CPT 59514; principal; 2023-02-26 07:30)
DX: O99.324 Drug use complicating childbirth (principal); Z3A.39 39 weeks gestation of pregnancy; Z37.0 Single live birth; O99.334 Smoking (tobacco) complicating childbirth; F17.210 Nicotine dependence, cigarettes, uncomplicated; F11.21 Opioid dependence, in remission; O34.211 Maternal care for low transverse scar from previous cesarean delivery; O69.9XX0 Labor and delivery complicated by cord complication, unspecified, not applicable or unspecified; Z30.2 Encounter for sterilization
CPT/HCPCS: 59514; 58600; 36415; 59025; 80053; 80305; 80307; 81001; 82800; 85014; 85018; 85025; 86850; 88302; 94761; C9290; C9803; G0283; J0574; J2405; U0003; U0005

== ENCOUNTER 2023-06-10 14:29 | Emergency (ER) | payer OTHER, SELFPAY ==
[2023-06-10 14:45] VITALS: BP 126/80; PULSE 74; RESP 20; TEMP 37.1; O2SAT 98; BMI 39.4
--- NOTE | 2023-06-10 14:49 | EXP.UTC ---
Discharge Plan Disposition Patient Disposition: Home, Self-Care Condition: Good Prescriptions Prescriptions: New gnhzlvyfduadupm-srrgnchfj-DV [Bromfed DM] 2-30-10 mg/5 mL Syrup 5 ml PO Q6H PRN (Reason: Cough) Qty: 240 0RF ondansetron 4 mg Tablet,Disintegrating 4 mg PO Q8H PRN (Reason: Nausea) Qty: 12 0RF No Action prenat.vits,jaya,kpk-aaug-durjm Tablet 1 tab PO DAILY Qty: 30 11RF buprenorphine-naloxone 8-2 mg film 2 film sublingual DAILY polyethylene glycol 3350 [Miralax] 17 gram/dose powder 17 g PO DAILY bupropion HCl [Wellbutrin XL] 150 mg tablet extended release 24 hr 150 mg PO DAILY ibuprofen [ibuprofen] 400 mg tablet 400 mg PO Q4HP PRN (Reason: Moderate Pain) Qty: 40 0RF Referrals Follow up/Referrals: Provider,Referral, MD [Primary Care Provider] - See instructions Activity Restrictions/Add. Instructions Additional Instructions/Restrictions: Drink plenty of fluids. Take tylenol or ibuprofen for pain or fever. Take the medications as directed. Follow up with your regular doctor. GO TO THE ER FOR ANY WORSENING SYMPTOMS Clinical Impressions Clinical Impression: Acute viral syndrome, Exposure to 2019 novel coronavirus Stand Alone Forms Stand Alone Forms: Work/School Release Instructions Patient Instructions: Coronavirus Disease 2019, Preventing the Spread of Coronavirus Discharge Instructions Discharge ED Provider: Ruddy Lam [facility] [place] HPI General Stated complaint: achey,runny nose,cough Time Seen by Provider: 06/10/23 14:49 History of Present Illness Provider Complaint: she states that she has had body aches, chills, fever, and malaise since last night. She has been exposed to covid-19. Related Data Home Medications Medication Instructions Recorded Confirmed buprenorphine 8 mg-naloxone 2 mg 2 film sublingual DAILY WITHDRAWAL 02/15/23 03/12/23 sublingual film bupropion HCl 150 mg 24 hr tablet, 150 mg PO DAILY Depression 02/26/23 03/12/23 extended release (Wellbutrin XL) polyethylene glycol 3350 17 17 g PO DAILY constipation 02/26/23 03/12/23 gram/dose oral powder (Miralax) Previous Rx's Medication Instructions Recorded prenat.vits,jaya,dme-gpns-gtrma 1 tab PO DAILY Supplement #30 tabs 01/29/23 ibuprofen 400 mg tablet 400 mg PO Q4HP PRN Moderate Pain 03/01/23 #40 tabs dirqgmmcmplvvxn-jdsqlaadjkcdcbz-XQ 5 ml PO Q6H PRN Cough #240 mL 06/10/23 2 mg-30 mg-10 mg/5 mL oral syrup (Bromfed DM) ondansetron 4 mg disintegrating 4 mg PO Q8H PRN Nausea #12 tabs 06/10/23 tablet Allergies Allergy/AdvReac Type Severity Reaction Status Date / Time No Known Allergies Allergy Verified 03/12/23 09:54 [facility] Disclaimer: The information contained in this section may have been updated after the patient was seen, as this information can be updated by other users. Medical History (Updated 06/10/23 @ 15:17 by Ruddy Lam APRN) Hepatitis C antibody positive in blood Surgical History (Updated 03/12/23 @ 09:54 by LAILA Soto) H/O bilateral salpingectomy History of section History of dilation and curettage Family History Other No significant family history Social History Smoking Status: Current every day smoker tobacco type: cigarettes packs per day: 1 alcohol intake: former substance use type: marijuana and other current occupational status: employed Travel in the last 8 weeks: None housing: house caffeine: Yes do you feel safe at home: Yes victim of physical abuse: No victim of emotional abuse: No victim of sexual abuse: No ROS Obtained: Yes All systems reviewed & no additional complaints except as documented Constitutional Constitutional: Reports chills and Reports fever(s) Eyes Eyes: Denies eye discharge ENT Ears, Nose, Mouth, and Throat: Reports as per HPI Cardiov
[2023-06-10 15:17] VITALS: BP 126/80; PULSE 74; RESP 20; TEMP 37.1; O2SAT 98
== END 2023-06-10 15:20 | disposition home or self-care (01) ==
PROVIDERS: Emergency Provider Nurse Practitioner Family
DX: R50.9 Fever, unspecified (principal); R53.81 Other malaise; B34.9 Viral infection, unspecified
CPT/HCPCS: 99204; 99212; G0463

== ENCOUNTER 2023-09-25 18:12 | Emergency (ER) | payer OTHER, SELFPAY ==
[2023-09-25 19:14] VITALS: BP 155/90; PULSE 85; RESP 18; TEMP 37.4; O2SAT 97; BMI 38.4
--- NOTE | 2023-09-25 19:14 | EXP.UTC ---
Discharge Plan Disposition Patient Disposition: Home, Self-Care Condition: Good Prescriptions Prescriptions: New benzonatate [benzonatate] 100 mg capsule 100 mg PO TIDP PRN (Reason: Cough) Qty: 30 0RF methylprednisolone 4 mg Tablets,Dose Pack 4 mg PO DIRECTED Qty: 21 0RF No Action Sublocade 300 mg/1.5 mL solution, extended rel syringe 300 mg SQ QMONTH Patient Comments: INJECT 300MG SUBCUTANEOUSLY ONCE MONTHLY Nicotrol 10 mg cartridge inhalation nicotine 21 mg/24 hr patch 24 hour topical polyethylene glycol 3350 [Miralax] 17 gram/dose powder 17 g PO DAILY Referrals Follow up/Referrals: Yonis Mclain MD [Primary Care Provider] - See instructions Activity Restrictions/Add. Instructions Additional Instructions/Restrictions: Drink plenty of fluids. Take tylenol or ibuprofen for pain or fever. Take the medications as directed. Follow up with your regular doctor. GO TO THE ER FOR ANY WORSENING SYMPTOMS Clinical Impressions Clinical Impression: Acute viral syndrome Instructions Patient Instructions: DI for Viral Syndrome Discharge ED Provider: Ruddy Lam [facility] General Stated complaint: cough, st, fever, congestion, runny nose Time Seen by Provider: 09/25/23 19:14 History of Present Illness Provider Complaint: She states that for the past 2 days she has had chills, body aches and low grade fever. Related Data Home Medications Medication Instructions Recorded Confirmed polyethylene glycol 3350 17 17 g PO DAILY constipation 02/26/23 08/21/23 gram/dose oral powder (Miralax) buprenorphine 300 mg/1.5 mL 300 mg SQ QMONTH 08/21/23 09/25/23 solution,exten.rel.subcutaneous syringe (Sublocade) nicotine 10 mg inhalation inhalation 08/21/23 08/21/23 cartridge (Nicotrol) nicotine 21 mg/24 hr daily topical 08/21/23 08/21/23 transdermal patch Previous Rx's Medication Instructions Recorded benzonatate 100 mg capsule 100 mg PO TIDP PRN Cough #30 caps 09/25/23 methylprednisolone 4 mg tablets in 4 mg PO DIRECTED #21 tabs 09/25/23 a dose pack Allergies Allergy/AdvReac Type Severity Reaction Status Date / Time No Known Allergies Allergy Verified 09/25/23 19:39 [facility] Disclaimer: The information contained in this section may have been updated after the patient was seen, as this information can be updated by other users. Medical History Hepatitis C antibody positive in blood Surgical History H/O bilateral salpingectomy History of section History of dilation and curettage Family History Other No significant family history Social History Smoking Status: Current every day smoker tobacco type: cigarettes packs per day: 1 alcohol intake: former substance use type: marijuana and other current occupational status: employed Travel in the last 8 weeks: None housing: house caffeine: Yes do you feel safe at home: Yes victim of physical abuse: No victim of emotional abuse: No victim of sexual abuse: No ROS Obtained: Yes All systems reviewed & no additional complaints except as documented Constitutional Constitutional: Reports chills and Reports fever(s) Eyes Eyes: Denies eye discharge ENT Ears, Nose, Mouth, and Throat: Reports as per HPI Cardiovascular Cardiovascular: Denies chest pain Respiratory Respiratory: Denies chest congestion and Reports cough Gastrointestinal Gastrointestingal: Reports nausea; Denies abdominal pain, constipation, cramping, diarrhea or vomiting Musculoskeletal Musculoskeletal: Denies arthralgias Integumentary/Breasts Skin/Breast: Denies rash Neurologic Neurologic: Denies paresthesias Physical Exam General
[2023-09-25 19:27] LABS: UTC Strep Screen (Rapid) Negative (Negative)
[2023-09-25 19:58] VITALS: BP 155/91; PULSE 85; RESP 18; TEMP 37.4; O2SAT 97
== END 2023-09-25 19:58 | disposition home or self-care (01) ==
PROVIDERS: Emergency Provider Nurse Practitioner Family; PCP Nurse Practitioner Obstetrics & Gynecology
DX: R05.9 Cough, unspecified (principal); R50.9 Fever, unspecified; R07.0 Pain in throat; R09.81 Nasal congestion; F17.210 Nicotine dependence, cigarettes, uncomplicated; B34.9 Viral infection, unspecified
CPT/HCPCS: 87635; 87880; 99212; 99214; G0463

== ENCOUNTER 2023-10-23 14:27 | Emergency (ER) | payer OTHER, SELFPAY ==
--- NOTE | 2023-10-23 15:29 | ED_ITS ---
Discharge Plan Disposition Patient Disposition: Home, Self-Care Condition: Good Prescriptions Prescriptions: New cmpsuogzymlfbsm-fbqdsroiq-FR [Bromfed DM] 2-30-10 mg/5 mL Syrup 5 ml PO Q6H PRN (Reason: Cough) Qty: 240 0RF ondansetron 4 mg Tablet,Disintegrating 4 mg PO Q8H PRN (Reason: Nausea) Qty: 12 0RF No Action Sublocade 300 mg/1.5 mL solution, extended rel syringe 300 mg SQ QMONTH Patient Comments: INJECT 300MG SUBCUTANEOUSLY ONCE MONTHLY Nicotrol 10 mg cartridge inhalation nicotine 21 mg/24 hr patch 24 hour topical polyethylene glycol 3350 [Miralax] 17 gram/dose powder 17 g PO DAILY benzonatate [benzonatate] 100 mg capsule 100 mg PO TIDP PRN (Reason: Cough) Qty: 30 0RF methylprednisolone 4 mg Tablets,Dose Pack 4 mg PO DIRECTED Qty: 21 0RF Referrals Follow up/Referrals: Provider,Referral, MD [Primary Care Provider] - See instructions Activity Restrictions/Add. Instructions Additional Instructions/Restrictions: Drink plenty of fluids. Take tylenol or ibuprofen for pain or fever. Take the medications as directed. Follow up with your regular doctor. GO TO THE ER FOR ANY WORSENING SYMPTOMS Clinical Impressions Clinical Impression: Acute viral syndrome, Exposure to 2019 novel coronavirus Instructions Patient Instructions: DI for Viral Syndrome, Coronavirus Disease 2019, Preventing the Spread of Coronavirus Discharge Instructions Discharge ED Provider: Ruddy Lam [facility] [place] H[place] General Stated complaint: covid expsoure, h/a, sore throat, runny nose Time Seen by Provider: 10/23/23 15:29 History of Present Illness Provider Complaint: She states that for the past 1 day she has had sore throat, chills, low grade fever and malaise. She has been exposed to covid-19 by her mother having it. Related Data Home Medications Medication Instructions Recorded Confirmed polyethylene glycol 3350 17 17 g PO DAILY constipation 02/26/23 08/21/23 gram/dose oral powder (Miralax) buprenorphine 300 mg/1.5 mL 300 mg SQ QMONTH 08/21/23 09/25/23 solution,exten.rel.subcutaneous syringe (Sublocade) nicotine 10 mg inhalation inhalation 08/21/23 08/21/23 cartridge (Nicotrol) nicotine 21 mg/24 hr daily topical 08/21/23 08/21/23 transdermal patch Previous Rx's Medication Instructions Recorded benzonatate 100 mg capsule 100 mg PO TIDP PRN Cough #30 caps 09/25/23 methylprednisolone 4 mg tablets in 4 mg PO DIRECTED #21 tabs 09/25/23 a dose pack [id number]-wkbidydcqzfbevk-HW 5 ml PO Q6H PRN Cough #240 mL 10/23/23 2 mg-30 mg-10 mg/5 mL oral syrup (Bromfed DM) ondansetron 4 mg disintegrating 4 mg PO Q8H PRN Nausea #12 tabs 10/23/23 tablet Allergies Allergy/AdvReac Type Severity Reaction Status Date / Time No Known Allergies Allergy Verified 09/25/23 19:39 [facility] Disclaimer: The information contained in this section may have been updated after the patient was seen, as this information can be updated by other users. Medical History Hepatitis C antibody positive in blood Surgical History H/O bilateral salpingectomy History of section History of dilation and curettage Family History Other No significant family history Social History Smoking Status: Current every day smoker tobacco type: cigarettes packs per day: 1 alcohol intake: former substance use type: marijuana and other current occupational status: employed Travel in the last 8 weeks: None housing: house caffeine: Yes do you feel safe at home: Yes victim of physical abuse: No victim of emotional abuse: No victim of sexual abuse: No ROS Obtained: Yes All systems reviewed & no additional complaints except as d ocumented Constitutional Constitutional: Reports chills and Reports fever(s) Eyes Eyes: Denies eye discharge ENT Ears, Nose, Mouth, and Throat: Reports as per HPI Cardiovascular Cardiovascular: Denies chest pain Respiratory Respiratory: Denies chest congestion and Reports cough Gastrointestinal Gastrointestingal: Reports nausea; Denies abdominal pain, constipation, cramping, diarrhea or vomiting Musculoskeletal Musculoskeletal: Denies arthralgias Integumentary/Breasts Skin/Breast: Denies rash Neurologic Neurologic: Denies paresthesias Physical Exam General General appearance: alert and in no apparent distress Head Head exam: atraumatic, normocephalic and normal inspection Eye Eye exam: Present normal appearance, PERRL and EOMI ENT ENT exam: Present normal exam, normal oropharynx, mucous membranes moist, TM's normal bilaterally and normal external ear exam Neck Neck exam: Present normal inspection, full ROM and trachea midline; Absent meningismus or lymphadenopathy Chest Chest inspection: Present normal inspection and symmetric chest wall rise; Absent tenderness Respiratory Respiratory exam: Present normal lung sounds bilaterally; Absent respiratory distress Cardiovascular Cardiovascular exam: Present regular rate and normal rhythm; Absent JVD Abdominal Exam Abdominal exam: Present soft and normal bowel sounds; Absent distention, tenderness or guarding Extremities Exam Extremities exam: Present normal inspection, full ROM and normal capillary refill; Absent calf tenderness Back Exam Back exam: Present normal inspection; Absent tenderness Neurological Exam Neurological exam: Present alert and oriented X3 Psychiatric Psychiatric exam: Present normal affect and normal mood Skin Skin exam: Present warm, dry, intact and normal color Lymphatic Lymphatic Findings: no adenopathy Medical Decision Making Medical Records Medical records reviewed: No I reviewed the patient's medical records. Matthew Inquiry Pt receiving controlled substance: No Lab Data Lab results reviewed: Yes I reviewed the patient's lab results.
[2023-10-23 15:53] VITALS: BP 142/82; PULSE 90; RESP 18; TEMP 36.8; O2SAT 98; BMI 35.9
[2023-10-23 16:13] LABS: Coronavirus 19, PCR Not Detected (NotDetected); Influenza A, PCR Not Detected (NotDetected); Influenza B, PCR Not Detected (NotDetected)
[2023-10-23 17:16] VITALS: BP 142/82; PULSE 90; RESP 18; TEMP 36.8; O2SAT 98
== END 2023-10-23 17:17 | disposition home or self-care (01) ==
PROVIDERS: Emergency Provider Nurse Practitioner Family
DX: R51.9 Headache, unspecified (principal); R07.0 Pain in throat; R09.81 Nasal congestion; R50.9 Fever, unspecified; R53.81 Other malaise; R05.9 Cough, unspecified; R11.0 Nausea; B34.9 Viral infection, unspecified; F17.210 Nicotine dependence, cigarettes, uncomplicated; Z20.822 Contact with and (suspected) exposure to COVID-19
CPT/HCPCS: 87636; 99212; 99214; G0463